=== PATIENT | male | born 1945 | race Caucasian/White ===

== ENCOUNTER 2017-04-11 06:27 | Day surgery (SDC) | payer MEDICARE ==
[~2017-04-11] VITALS: Ht 180.3 cm; Wt 88.0 kg
[~2017-04-11 06:27] MED LIST: ALFUZOSIN HCL10 MG PO; ASPIRIN EC325 MG PO; B COMPLETE1 EACH PO; COZAAR50 MG PO; DAILY VITAMIN1 EAC2 PO; FLAX SEED OIL1000 MG PO; MELOXICAM7.5 MG PO; VITAMIN D5000 UNIT PO
[2017-04-11] MEDS ORDERED: COZAAR25 MG PO (06:42)
--- NOTE | 2017-04-11 07:22 | NUR ---
THIS PT IS HERE IN VERY GOOD ATTITUDE. HIS IS WITH HIM. HE IS WANTING TO GET DONE SO HE CAN GO GET BREAKFAST. HE DID NOT WANT PRAYER, BUT IT WAS A DELIGHT TO TALK WITH HIM HE WAS SO CHEERFUL.
--- NOTE | 2017-04-11 08:04 | NUR ---
04/11/17 0804 [facility],Rajinder O2 DECREASED TO 1L VIA NC.
--- NOTE | 2017-04-12 12:08 | OR ---
[facility] [address], [place] [address] Signed PREOPERATIVE DIAGNOSIS: Screening. POSTOPERATIVE DIAGNOSES 4 mm polyps x2 at 8 cm. Minimal to moderate internal hemorrhoids. Moderate sigmoid diverticulosis. PROCEDURE: Colonoscopy with hot biopsy. ESTIMATED BLOOD LOSS: None. INDICATIONS Imani is a 72-year-old gentleman who underwent a negative colonoscopy at age 62. He had this done in [place]. He cannot remember the name of the endoscopist and his primary care provider, Dr. Sal Ash has since retired. In the meantime, he has no lower GI complaints. There is no family history of colon cancer or polyps. He was asked to see me for a routine followup screening colonoscopy. I met with Imani in the office and I gave him a pamphlet on colonoscopy. We reviewed the nature of the test along with the risks and benefits, including but not limited to gas bloating, crampy abdominal pain, bleeding, perforation requiring surgery, and missed diagnosis. We also discussed the need for IV conscious sedation. He had expressed understanding and wished to proceed. PROCEDURE NOTE Imani was taken into our endoscopy suite and placed in the left lateral decubitus position. He was given IV sedation with 4 mg of Versed and 125 mcg of Fentanyl. A digital rectal exam was performed and he does have some induration to his prostate gland consistent with his age. The adult colonoscope was introduced and advanced all around into the cecum under direct visualization with camera without difficulty. His prep was good. The scope was then slowly withdrawn. We could see the diverticula in the sigmoid colon. They were moderate in size, moderate in number and scattered about. In the rectum, he had 2 tiny hyperplastic-appearing polyps which were removed easily with hot biopsy forceps. Upon retroflexion of scope, he does have minimal to moderate internal hemorrhoid polyps as well. After this, the gas was suctioned out and the colonoscope was removed. Imani tolerated the procedure quite well. RECOMMENDATIONS I will see Imani back in my office in 7-14 days to review his results. Liliya Enciso MD Electronically Signed By: LILIYA ENCISO MD 04/12/17 1208 PATIENT NAME: IMANI PERRY OPERATIVE REPORT DATE OF : 49 PHYSICIAN: LILIYA ENCISO MD REPORT #: [id number] REPORT IS CONFIDENTIAL AND NOT TO BE RELEASED WITHOUT AUTHORIZATION [address] [place], [place] [address] Signed /Saleem /[id number] cc: Fernando Chen MD Electronically Signed By: LILIYA ENCISO MD 04/12/17 1208 PATIENT NAME: IMANI PERRY OPERATIVE REPORT DATE OF : 49 PHYSICIAN: LILIYA ENCISO MD REPORT #: [id number] REPORT IS CONFIDENTIAL AND NOT TO BE RELEASED WITHOUT AUTHORIZATION
== END 2017-04-11 08:34 | disposition home or self-care (01) ==
LOC: DS 06:27 → OPS 06:27 → DS 06:45 → OPS 06:45
PROVIDERS: Colon & Rectal Surgery
PROC: 0DBE8ZX Excision of Large Intestine, Via Natural or Artificial Opening Endoscopic, Diagnostic (ICD-10-PCS; principal; 2017-04-11 06:45)
DX: Z12.11 Encounter for screening for malignant neoplasm of colon (principal); K63.5 Polyp of colon; K64.8 Other hemorrhoids; K57.30 Diverticulosis of large intestine without perforation or abscess without bleeding; I10 Essential (primary) hypertension; K21.9 Gastro-esophageal reflux disease without esophagitis; N40.0 Benign prostatic hyperplasia without lower urinary tract symptoms; E11.9 Type 2 diabetes mellitus without complications; M19.90 Unspecified osteoarthritis, unspecified site; Z79.82 Long term (current) use of aspirin; Z79.899 Other long term (current) drug therapy; Z98.890 Other specified postprocedural states
CPT/HCPCS: 88305; 99152; 99153; J2250; J3010; J7120

== ENCOUNTER 2017-12-24 10:05 | Emergency (ER) | payer MEDICARE ==
[~2017-12-24] VITALS: Ht 180.3 cm; Wt 88.0 kg
--- OUTSIDE RECORDS SUMMARY | ~2017-12-24 | XMS | Clinical Summary ---
Demographics + + + | Address | [address] | | | [place] [address] | + + + | Home Phone | | + + + | Preferred Language | Unknown | + + + | Marital Status | | + + + | Roman Catholic Affiliation | Unknown | + + + | Race | White | + + + | Ethnic Group | Not or | + + + Author + + + | Author | [facility] | + + + | Organization | [facility] | + + + | Address | Unknown | + + + | Phone | Unavailable | + + + Support + + +---------+ + | Name | Relationship | Address | Phone | + + +---------+ + | Roxie Brannon | ECON | Unknown | | + + +---------+ + Care Team Providers + +------+ + | Care Range Aid Name | Role | Phone | + +------+ + | Fernando Chen MD | PP | | + +------+ + Source Comments SURI is fully live on both [facility] and [facility] Allergies Not on File Current Medications Not on file Active Problems Not on file Encounters +--------+ + + + + | Date | Type | Specialty | Care Team | Description | +--------+ + + + + | 10/31/ | Documentati | | Carly Levine, | | | 2017 | on | | PA-C | | +--------+ + + + + | 10/14/ | Hospital | | | | | 2017 | Encounter | | | | +--------+ + + + + from Last 3 Months Social History + +-------+ +--------+------+ | Tobacco Use | Types | Packs/Day | Years | Date | | | | | Used | | + +-------+ +--------+------+ | Never Assessed | | | | | + +-------+ +--------+------+ + + + | Sex Assigned at | Date Recorded | | | | + + + | Not on file | | + + + Plan of Treatment +--------+ + + + + | Date | Type | Specialty | Care Team | Description | +--------+ + + + + | 01/16/ | Diagnostic | | Staff, Aud Flex | | | 2018 | Visit | | [address] | | | | | | [facility], | | | | | | [place] [address] | | +--------+ + + + + | 01/16/ | Diagnostic | | | | | 2017 | Visit | | | | +--------+ + + + + | 01/16/ | Office | | Briana Ascencio MD | | | 2017 | Visit | | [address] | | | | | | [facility], | | | | | | [place] [address] | | | | | | [phone] | | | | | | | | +--------+ + + + + + + + + + | Health Maintenance | Due Date | Last Done | Comments | + + + + + | INFLUENZA VACCINE | | | | | (FLU SHOT) | 8 | | | + + + + + Results Not on filefrom Last 3 Months"
--- OUTSIDE RECORDS SUMMARY | ~2017-12-24 | XMS | Encounter Summary ---
Demographics + + + | Address | [address] | | | [place] [address] | + + + | Home Phone | | + + + | Preferred Language | Unknown | + + + | Marital Status | | + + + | Christian Affiliation | Unknown | + + + | Race | White | + + + | Ethnic Group | Not or | + + + Author + + + | Author | [facility] | + + + | Organization | [facility] | + + + | Address | Unknown | + + + | Phone | Unavailable | + + + Support + + +---------+ + | Name | Relationship | Address | Phone | + + +---------+ + | Roxie Brannon | ECON | Unknown | | + + +---------+ + Care Team Providers + +------+ + | Care Bag Maker Name | Role | Phone | + +------+ + | Fernando Chen MD | PCP | | + +------+ + Encounter Details +--------+ + + + + | Date | Type | Department | Care Team | Description | +--------+ + + + + | 10/31/ | Documentati | Otolaryngology | Carly Levine, | | | 2018 | on | Otology Services at | PA-C [address] | | | | | [facility] [address] | [facility] | | | | | [facility] | [place], [place] | | | | | Mailcode: [address] | [address] | | | | | Physician's Mamta | [phone] | | | | | [place], [place] | | | | | | [address] | | | | | | [phone] | | | +--------+ + + + + Social History + +-------+ +--------+------+ | Tobacco [...] on file | | + + + as of this encounter Plan of Treatment +--------+ + + + + | Date | Type | Specialty | Care Team | Description | +--------+ + + + + | 01/16/ | Diagnostic | Procedures Analyst | Ismael Shah | | | 2018 | Visit | | [address] | | | | | | [place], | | | | | | [place] [address] | | +--------+ + + + + | 01/16/ | Diagnostic | Procedures Analyst | | | | 2017 | Visit | | | | +--------+ + + + + | 01/16/ | Office | Otolaryngology | Briana Ascencio MD | | | 2017 | Visit | | [address] | | | | | | [place], | | | | | | [place] [address] | | | | | | [phone] | | | | | | | | +--------+ + + + + as of this encounter Visit Diagnoses Not on filein this encounter"
--- OUTSIDE RECORDS SUMMARY | ~2017-12-24 | XMS | Encounter Summary ---
Demographics + + + | Address | [address] | | | [place] [address] | + + + | Home Phone | | + + + | Preferred Language | Unknown | + + + | Marital Status | | + + + | Methodist Affiliation | Unknown | + + + | Race | White | + + + | Ethnic Group | Not or | + + + Author + + + | Author | [facility] | + + + | Organization | [facility] | + + + | Address | Unknown | + + + | Phone | Unavailable | + + + Support + + +---------+ + | Name | Relationship | Address | Phone | + + +---------+ + | Roxie Brannon | ECON | Unknown | | + + +---------+ + Care Team Providers + +------+ + | Care Industrial Gas Servicer Helper Name | Role | Phone | + +------+ + | Fernando Chen MD | PCP | | + +------+ + Encounter Details +--------+ + + + + | Date | Type | Department | Care Team | Description | +--------+ + + + + | 10/14/ | Hospital | Registration HOV | | | | 2018 | Encounter | [address] | | | | | | [place] | | | | | | [place], [place] | | | | | | [address] | | | +--------+ + + + [...] + + | 01/16/ | Diagnostic | Turbine Measurements Engineer | StaffIsmael | | | 2018 | Visit | | [address] [facility] | | | | | | [facility], | | | | | | [place] [address] | | +--------+ + + + + | 01/16/ | Diagnostic | Turbine Measurements Engineer | | | | 2017 | Visit | | | | +--------+ + + + + | 01/16/ | Office | Otolaryngology | Briana Ascencio MD | | | 2017 | Visit | | [address] | | | | | | [place], | | | | | | [place] [address] | | | | | | [phone] | | | | | | | | +--------+ + + + + as of this encounter Visit Diagnoses Not on filein this encounter"
--- OUTSIDE RECORDS SUMMARY | ~2017-12-24 | XMS | Encounter Summary ---
Demographics + + + | Address | [address] | | | [place] [address] | + + + | Home Phone | | + + + | Preferred Language | Unknown | + + + | Marital Status | | + + + | Scientologist Affiliation | Unknown | + + + | Race | White | + + + | Ethnic Group | Not or | + + + Author + + + | Author | [facility] | + + + | Organization | [facility] | + + + | Address | Unknown | + + + | Phone | Unavailable | + + + Support + + +---------+ + | Name | Relationship | Address | Phone | + + +---------+ + | Roxie Brannon | ECON | Unknown | | + + +---------+ + Care Team Providers + +------+ + | Care Music Manager Name | Role | Phone | + [...] [address] | | | | | | [place], [place] | | | | | | [address] | | | +--------+ + + + [...] + + | 01/16/ | Diagnostic | Bar Turner | StaffIsmael | | | 2018 | Visit | | [address] [facility] | | | | | | [facility], | | | | | | [place] [address] | | +--------+ + + + + | 01/16/ | Diagnostic | Bar Turner | | | | 2017 | Visit | | | | +--------+ + + + + | 01/16/ | Office | Otolaryngology | Briana Ascencio MD | | | 2017 | Visit | | [address] | | | | | | [place], | | | | | | [place] [address] | | | | | | [phone] | | | | | | | | +--------+ + + + + as of this encounter Visit Diagnoses Not on filein this encounter"
--- OUTSIDE RECORDS SUMMARY | ~2017-12-24 | XMS | Clinical Summary ---
Demographics + + + | Address | [address] | | | [place] [address] | + + + | Home Phone | | + + + | Preferred Language | Unknown | + + + | Marital Status | | + + + | Orthodoxy Affiliation | Unknown | + + + [...] Team Providers + +------+ + | Care Acetylene Torch Burner Name | Role | Phone | + +------+ + | Fernando Chen MD | PP | | + +------+ + Source Comments SURI is fully live on both [facility] Amb[facility] and [facility] InPatient.[facility] Allergies Not on File Current [...] [address] | | | | | | [facility], | | | | | | [place] [address] | | +--------+ + + + + | 01/16/ | Diagnostic | | | | | 2017 | Visit | | | | +--------+ + + + + | 01/16/ | Office | | Briana Ascencio MD | | | 2017 | Visit | | [address] | | | | | | [place] [facility], | | | | | | [place] [address] | | | | | | [phone] | | | | | | | [...]
--- OUTSIDE RECORDS SUMMARY | ~2017-12-24 | XMS | Encounter Summary ---
Demographics + + + | Address | [address] | | | [place] [address] | + + + | Home Phone | | + + + | Preferred Language | Unknown | + + + | Marital Status | | + + + | Mandaen Affiliation | Unknown | + + + | Race | White | + + + | Ethnic Group | Not or | + + + Author + + + | Author | [facility] | + + + | Organization | [facility] | + + + | Address | Unknown | + + + | Phone | Unavailable | + + + Support + + +---------+ + | Name | Relationship | Address | Phone | + + +---------+ + | Roxie Brannon | ECON | Unknown | | + + +---------+ + Care Team Providers + +------+ + | Care Dietary Internship Name | Role | Phone | + [...] | [facility] [address] | [facility] | | | | | [facility] | [place], [place] | | | | | Mailcode: [address] | [address] | | | | | Physician's Mamta | [phone] | | | | | [place], [place] | | | | | | [address] | | | | | | [phone] | | | +--------+ + + + [...] + + | 01/16/ | Diagnostic | Hardware Developer | Ismael Shah | | | 2018 | Visit | | [address] | | | | | | [place], | | | | | | [place] [address] | | +--------+ + + + + | 01/16/ | Diagnostic | Hardware Developer | | | | 2017 | Visit | | | | +--------+ + + + + | 01/16/ | Office | Otolaryngology | Briana Ascencio MD | | | 2017 | Visit | | [address] | | | | | | [place], | | | | | | [place] [address] | | | | | | [phone] | | | | | | | | +--------+ + + + + as of this encounter Visit Diagnoses Not on filein this encounter"
[~2017-12-24 10:05] MED LIST changes: +COZAAR25 MG PO
--- NOTE | 2017-12-25 06:37 | EKG ---
[facility] [address] [facility] [place] [address] Signed Sinus bradycardia Otherwise normal ECG No previous ECGs available Confirmed by RADHA RUIZ MD ([id number]) on 12/25/2017 6:36:54 AM Electronically Signed By: RADHA RUIZ MD 12/25/17 0637 PATIENT NAME: IMANI PERRY Electrocardiogram DATE OF : 49 PHYSICIAN: RADHA RUIZ MD REPORT #: [id number] REPORT IS CONFIDENTIAL AND NOT TO BE RELEASED WITHOUT AUTHORIZATION
== END 2017-12-24 12:28 | disposition home or self-care (01) ==
LOC: ED 10:05
DX: R07.9 Chest pain, unspecified (principal); Z79.82 Long term (current) use of aspirin; Z79.899 Other long term (current) drug therapy
CPT/HCPCS: 71045; 80053; 84484; 85025; 93005; 93010; 96374; 99283; J1885